=== PATIENT | male | born 1965 | race American Indian/Alaskan Native ===

== ENCOUNTER 2016-05-11 21:28 | Emergency (ER) | payer SELFPAY ==
[2016-05-11 22:32] VITALS: BP 142/104
== END 2016-05-12 04:16 | disposition left against medical advice (07) ==
LOC: ED 21:28
DX: R07.9 Chest pain, unspecified (principal); M54.5 Low back pain; M25.531 Pain in right wrist; M25.532 Pain in left wrist; Z53.21 Procedure and treatment not carried out due to patient leaving prior to being seen by health care provider; V89.2XXA Person injured in unspecified motor-vehicle accident, traffic, initial encounter; Y93.9 Activity, unspecified; Y92.9 Unspecified place or not applicable; Y99.9 Unspecified external cause status